=== PATIENT | female | born 1990 | race Caucasian/White ===

== ENCOUNTER 2022-01-14 08:42 | Outpatient (CLI) | payer MEDICAID, SELFPAY ==
--- OUTSIDE RECORDS SUMMARY | 2022-02-03 18:27 | XMS_ITS | Continuity of Care Document ---
:1990 Author Organization [facility] Address [address] [address] [place] [address] Phone Care Team Providers Name Role Phone Wild RODRIGUEZ, Blake Unavailable Unavailable Procedures Procedure Date Ugi Endo; W/bx 1/mx Advance Directives Directive Yes / No Effective Date File Name No Information Encounters Encounter Practice Location Reason(s) Diagnoses Date Provider Provide rs Description For Visit Copied on Encounter [facility] Pediatric No Wild RODRIGUEZ [facility] Information 0-200 Blake. [facility], [address] [place] [address], Street [place], [address], [id number] [place] [id number], tel:[phone]. [phone] tel:[phone] [facility] No Jun-0 No Referring [facility] Information 3-200 Information Pr ovider: Health [facility], Procedures [address] [place] [address], G, [address] [facility] [id number], [address]. tel:[phone] tel:[phone] Family History Family Member Type Diagnosis Age At Onset No Information Payers Payer name Insurance type Covered constitution party ID Authorization(s ) Formerly [facility] [id number] [place] Medical Assistance [id number] Social History Type Description Quantity Date Captured Comments Sex Female Smoking Status No Information Chief Complaint And Reason For Visit No Information Reason For Referral Reason For Referral No Information Plan Of Treatment Date Type Action Status No Information History Of Present Illness Encounter Date Complaint History Of Present I llness No Information Functional Status Date Functional Assessment No Information Instructions Date Instruction Additional Informati on No Information Assessments Type Assessment Date No Information Patient Care Teams Name Effective Dates (start - stop) Status M embers No Information
== END 2022-01-14 08:43 | disposition home or self-care (01) ==
PROVIDERS: PCP Family Medicine; Visit Provider Family Medicine
DX: R30.0 Dysuria (principal); N39.0 Urinary tract infection, site not specified
CPT/HCPCS: 87086

== ENCOUNTER 2022-10-26 11:02 | Outpatient (REF) | payer MEDICAID, SELFPAY ==
[2022-10-26 14:26] LABS: Cholesterol* 152 mg/dL (90-199); Glucose* 101 mg/dL (60-115); HDL Cholesterol* 58 mg/dL (>=50); LDL Cholesterol Calculated 79 mg/dL (<100); Triglycerides* 74 mg/dL (40-149)
== END 2022-10-26 11:03 | disposition home or self-care (01) ==
LOC: NPINS 11:02
PROVIDERS: PCP Family Medicine
DX: Z79.899 Other long term (current) drug therapy (principal); Z13.6 Encounter for screening for cardiovascular disorders; Z13.1 Encounter for screening for diabetes mellitus
CPT/HCPCS: 80061; 82947

== ENCOUNTER 2023-07-25 12:54 | Emergency (ER) | payer MEDICAID, SELFPAY ==
[2023-07-25 13:16] VITALS: BP 118/83; PULSE 90; RESP 18; TEMP 37; O2SAT 97; BMI 26.0
--- NOTE | 2023-07-25 13:35 | ED_ITS ---
HPI - General Adult General Date Seen: 07/25/23 Chief complaint: Cough Stated complaint: Flu symptoms Time Seen by Provider: 07/25/23 13:33 History of Present Illness HPI narrative: This is a 33-year-old female who has special needs. History is obtained from her mother and her nursing home staff member. She has a history of scoliosis, hypotonia, previous self-inflicted injuries, P5 partial monosomy syndrome. She has had occasional UTIs. No history of any va ginal bleeding since her hysterectomy. She is a resident of the [facility] in [place]. She has coughing, fever. Apparently 2 or 3 of her nursing home members also tested positive for influenza A. She is also having abdominal pain and vaginal spotting, but has a history of previous hysterectomy. They have noted symptoms that began last Wednesday with cough and fever. She has had intermittent fevers since then. Maximum temperature charted that I can see in her nursing home records was 11.8. Most temperature is of been more low grade, in the 90s on 100. She has had a cough but no respiratory distress. No definite sputum. No vomiting. She has not had any labored breathing or any cyanotic spells. She does get her oxygen saturations measured every day and they have been in the 90s. Also for the past 3 or 4 days she has been sometimes gesturing at her lower abdomen is if she is having discomfort. They have noted a little bit of dark brown discharge or liquid in her depends undergarments. Unclear if that dark brown could be her urine or possibly could be some vaginal discharge. Mother suspects it might be urine. She has longstanding history of constipation and as is not unusual for her she has not had any bowel movements for a 3 days. Mother knows the typical routine that they will use to resolve her constipation and is not concerned about that. Related Data Home Medications Medication Instructions Recorded Confirmed adapalene 0.1 % topical gel 1 topical .Bedtime 01/14/22 04/28/23 dextroamphetamine-amphetamine ER 5 5 PO DAILY 01/14/22 04/28/23 mg 24hr capsule,extend release risperidone 1 mg tablet 1 mg PO BID 01/14/22 07/25/23 trazodone 100 mg tablet 100 mg PO QDAY 01/14/22 07/25/23 fluoride (sodium) 1.1 % dental 1 applic dental QHS 04/27/22 07/25/23 cream (SF 5000 Plus) propranolol 10 mg tablet 10 mg PO BID 04/27/22 07/25/23 quetiapine 100 mg tablet (Seroquel) 250 mg PO BID 04/27/22 07/25/23 montelukast 10 mg tablet 10 mg PO QPM 07/25/23 07/25/23 Previous Rx's Medication Instructions Recorded polyethylene glycol 3350 17 17 g PO Q OTHER DAY #510 grams 04/28/23 gram/dose oral powder ondansetron 4 mg disintegrating 4 mg PO Q8H PRN nausea and 07/25/23 tablet vomiting #10 tabs oseltamivir 75 mg capsule (Tamiflu) 75 mg PO BID 5 days #10 caps 07/25/23 Allergies Allergy/AdvReac Type Severity Reaction Status Date / Time codeine Allergy Mild causes her Verified 07/25/23 13:22 to [facility] Medical History (Updated 07/25/23 @ 15:01 by Brennan Skelton MD) Gastric ulcer ?K25.9 - Gastric ulcer, unspecified as acute or chronic, without hemorrhage or perforation (ICD-10) Surgical History (Updated 04/27/22 @ 08:14 by Apolinar Newman MD) H/O tooth extraction ?K08.409 - Partial loss of teeth, unspecified cause, unspecified class (ICD- 10) H/O spinal fusion ?Z98.1 - Arthrodesis status (ICD-10) History of surgery on lower extremity ?Z98.890 - Other specified postprocedural states (ICD-10) History of Christiano fundoplication (07/15/10) ?Z98.890 - Other specified postprocedural states (ICD-10) History of hysterectomy ?Z90.710 - Acquired absence of both cervix and uterus (ICD-10) Social History (Updated 01/14/22 @ 15:06 by Apolinar Newman MD) Narrative: SOCIAL HISTORY: She lives in a nursing home in [place]. Her family lives in psychiatric hospital. She spends 1 day per week and every other weekend with her parents. HABITS: No tobacco, alcohol, recreational drug use. FAMILY HISTORY: Notable for breast cancer, heart disease and a bleeding disorder in maternal grandmother. Maternal grandfather with heart problems, diabetes and some type of cancer. Diabetes in both paternal grandmother and paternal grandfather. Paren Smoking Status: Never smoker Do you use any of these nicotine containing products: None How often do you have a drink containing alcohol: never How often do you have six or more drinks on one occasion: Never AUDIT-C Alcohol total score: 0 Non-prescribed substance use: denies use Exam Narrative: Exam Narrative: Constitutional: Appears well-developed and well-nourished. Alert. She is nonverbal but cooperative with exam. She does do a few simple signs to communicate with her mother. She follows simple commands. Of note she does have a little bit again given and retching went into the room. We suspect that this is related because she is very sensitive to smells and her mother thinks it might be my hand mechanic chief. She has not had other vomiting at home. She is wearing in all [employer] purple outfit. HENT: Head: Atraumatic. Nose: Nose normal. Mouth/Throat: Oral mucosa is clear and moist. no trismus. Visualized tongue and pharynx are normal. Eyes: Conjunctivae normal. EOM normal. Pupils equal, round, and reactive to light. No scleral icterus. Neck: Normal range of motion. Neck supple. No tracheal deviation present. No JVD Cardiovascular: Normal rate, regular rhythm. No gallop. No friction rub. No murmur heard. Symmetric radial artery pulses Pulmonary/Chest: Effort normal. No stridor. No respiratory distress. No wheezes. No rales. No rhonchi . No tenderness. Abdominal: Soft. Bowel sounds normal. No distension. No mass. No apparent tenderness or any signs of discomfort with deep abdominal palpation. No rebound. No guarding. No CVA tenderness. Musculoskeletal: RUE: Normal range of motion. No tenderness. No deformity LUE: Normal range of motion. No tenderness. No deformity RLE: Normal range of motion. No edema. No tenderness. No deformity LLE: Normal range of motion. No edema. No tenderness. No deformity Neurological: Alert . Nonverbal. At her neurologic baseline. Normal strength. CN II-VII intact. No sensory deficit. GCS eye subscore is 4. GCS verbal subscore is 5. GCS motor subscore is 6. Normal coordination Skin: Skin is warm and dry. No rash noted. No pallor. Normal capillary refill. Psychiatric: Normal mood. Normal affect. Interacts well with her mother and caregiver. Const: Vital Signs, click to edit/add: Vital Signs - 24 hr 07/25/23 13:16 Temperature 98.6 F Pulse Rate [Pulse Oximeter] 90 Respiratory Rate 18 Blood Pressure [Ri ght Upper Arm] 118/83 Pulse Oximetry 97 Oxygen Delivery Me thod Room Air Course Vital Signs Vital signs: Initial Vital Signs Temperature 98.6 F 07/25/23 13:16 Temperature Source Temporal Artery Scan 07/25/23 13:16 Pulse Rate 90 07/25/23 13:16 Respiratory Rate 18 07/25/23 13:16 Blood Pressure 118/83 07/25/23 13:16 Blood Pressure Mean 94 07/25/23 13:16 Blood Pressure Position Sitting 07/25/23 13:16 Pulse Oximetry 97 07/25/23 13:16 Oxygen Delivery Method Room Air 07/25/23 13:16 Vital Signs Temperature 98.6 F 07/25/23 13:16 Pulse Rate 90 07/25/23 13:16 Respiratory Rate 18 07/25/23 13:16 Blood Pressure 118/83 07/25/23 13:16 Pulse Oximetry 97 07/25/23 13:16 Oxygen Delivery Method Room Air 07/25/23 13:16 Temperature 98.6 F 07/25/23 13:16 Pulse Rate 90 07/25/23 13:16 Respiratory Rate 18 07/25/23 13:16 Blood Pressure 118/83 07/25/23 13:16 Pulse Oximetry 97 07/25/23 13:16 Oxygen Delivery Method Room Air 07/25/23 13:16 Medical Decision Making [facility] Narrative Medical decision making narrative: This patient presents for evaluation of cough, fever, and myalgias ongoing since Wednesday. This is consistent with an influenza like illness. Two or 3 of her nursing home roommates have also been positive for influenza this week. She is positive for influenza a by PCR. Negative for B, RSV, COVID. She is outside t he optimal 48 hour window for treatment with Tamiflu, however Patient meets criteria for treatment because the have high-risk features for severe illness. Fortunately this point vital signs and oxygen are stable. She is breathing easily. Does not currently require hospitalization. Will initiate treatment with Tamiflu. Discussed the risk of side effects. Zofran ODT prescribed in case she develops nausea. Mother also notes that she has had some brownish fluid in her depends diaper this week. Concern is for possible brown/bloody urine or possible vaginal bleeding. However she had a hysterectomy years ago is not had any vaginal bleeding since then. Urinalysis does show hematuria but no definite pyuria or bacteriuria or other clear evidence for UTI. At this point no indication for a ntibiotic therapy for cystitis but will send urine culture. They will need outpatient follow-up with primary care or Gynecology for further evaluation and recheck for hematuria. If no external cause for hematuria noted on clinical exam may need Urology referral in cystoscopy. Will treat with Tamiflu for influenza. They are at risk for pneumonia but no signs of this are detected on today's visit. Close followup of primary care physician is indicated and return to the ED for high fevers > 103 for more than 48 hours more, increasing productive cough, shortness of breath, or confusion. There is no signs of serious bacterial infection such as bacteremia, meningitis, UTI/pyelonephritis, strep pharyngitis, etc. Lab Data Labs: Lab Results 07/25/23 07/25/23 Range/Units 13:25 13:30 Urine Color Yellow (Yellow) Urine Appearance Clear (Clear) Urine pH 7.0 (5.0-8.5) Ur Specific [place] 1.010 (1.000-1.030) Urine Protein Negative (Negative) Urine Glucose (UA) Negative (Negative) Urine Ketones Negative (Negative) Urine Blood 1+ A (Negative) Urine Nitrite Negative (Negative) Urine Bilirubin Negative (Negative) Urine Urobilinogen 0.2 (0.2-1.0) Ur Leukocyte Esterase 1+ A (Negative) Urine RBC 2-5 A (0-2) Urine WBC 0-2 (0-5) Ur Squamous Epith Cells Few (None-Few) Urine Bacteria Few A (None) SARS-CoV-2 (PCR) Negative SARS-CoV-2 (Negative) Influenza Type A (PCR) POSITIVE PCR FLU A A (Negative) Influenza Type B (PCR) Negative PCR FLU B (Negative) RSV (PCR) Negative PCR RSV (Negative) Discharge Plan Discharge Clinical Impression: Influenza A, Hematuria Patient Disposition: Home, Self-Care Condition: Stable Instructions: Influenza (DC), Hematuria (ED) Additional Instructions: Please treat the influenza with Tamiflu. This is normally twice daily for 5 days. If she has worsening cough, trouble breathing, high fever, confusion, weakness, or abnormal behavior, please bring her back to the ER right away. Sometimes Tamiflu can cause nausea and vomiting. Use Zofran if needed it to treat nausea. She does have some blood in her urine sample but no clear sign of infection. We will send a urine culture today and call you if it grows bacteria. Please follow-up with her regular doctor or with her platform architect to have a repeat urinalysis, repeat exam and pelvic exam determine where the blood is coming from. Prescriptions: New oseltamivir [Tamiflu] 75 mg capsule 75 mg PO BID 5 Days Qty: 10 0RF ondansetron 4 mg tablet,disintegrating 4 mg PO Q8H PRN (Reason: nausea and vomiting) Qty: 10 0RF No Action dextroamphetamine-amphetamine 5 mg capsule,extended release 24hr 5 PO DAILY risperidone 1 mg tablet 1 mg PO BID trazodone 100 mg tablet 100 mg PO QDAY adapalene 0.1 % gel 1 topical .Bedtime propranolol 10 mg tablet 10 mg PO BID fluoride (sodium) [SF 5000 Plus] 1.1 % cream 1 applic dental QHS Patient Comments: BRUSH TEETH WITH A PEA SIZED AMOUNT FOR 60 SECONDS ONCE DAILY AT BEDTIME THEN SPIT - DO NOT RINSE - NOTHING BY MOUTH FOR 30 MINUTES AFTER US quetiapine [Seroquel] 100 mg tablet 250 mg PO BID polyethylene glycol 3350 17 gram/dose powder 17 g PO Q OTHER DAY Qty: 510 11RF montelukast 10 mg tablet 10 mg PO QPM Follow Up/Referrals: Apolinar Newman MD [Primary Care Provider] - Stand Alone Forms: Popdeem Info Instructions
[2023-07-25 13:56] LABS: Appearance Urine Clear (Clear); Bilirubin Urine Negative (Negative); Blood Urine 1+ (Negative); Color Urine Yellow (Yellow); Glucose Urine Negative (Negative); Ketones Urine Negative (Negative); Leukocyte Esterase Urine 1+ (Negative); Nitrite Urine Negative (Negative); Protein Urine Negative (Negative); Urobilinogen Urine 0.2 (0.2-1.0)
--- OUTSIDE RECORDS SUMMARY | 2023-07-25 14:10 | XMS_ITS | Clinical Summary ---
Author Name Unknown Organization [facility] Address [place], [place] [address] Care Team Providers Care Mail Agent Name Role Phone Apolinar Newman MD Primary Care Provider Allergies Active Allergy Reactions Criticality Noted Date Comments Codeine Other - Describe In Comment Field 09/02/2022 Causes patient to gag Unknown-Follow Up Needed (Include Details In Comments) 05/08/2006 environmental=Hay fever Medications Medication Sig Dispensed Refills Start Date End Date Status TRAZODONE 100 MG TAB take 1 tab by mouth @ bedtime 0 Active montelukast (SINGULAIR) 10 mg tablet Take 1 tablet by mouth at bedtime. 0 12/16/2016 Active sodium fluoride dental 1.1 % gel [place] pea-size amount on teeth QD at HS. NPO for 30 minutes after applying. 0 12/16/2016 Active Polyethylene Glycol 3350 powder TAKE 17GM BY MOUTH DIRECTED EVERY OTHER DAY 11 03/18/2018 Active dextroamphetamine-a mphetamine (ADDERALL XR) 5 mg Extended-Release capsule 0 03/08/2019 Active CLEARLAX 17 gram/dose powder 0 02/09/2019 Active QUEtiapine (SEROQUEL) 50 mg tablet TAKE ONE TABLET BY MOUTH TWICE A DAY, TAKE WITH 200MG TABLET FOR A TOTAL DAILY DOSE OF 250MG TWO TIMES A DAY 0 03/05/2021 Active risperiDONE (RISPERDAL) 1 mg tablet Take 1 mg by mouth 2 times daily. 0 03/10/2021 Active QUEtiapine (SEROQUEL) 100 mg tablet 2 Tablets (200 mg). 0 05/20/2021 Activ e amoxicillin-clavula chyna (AUGMENTIN) 400-57 mg/5 mL suspensionIndicatio ns:Cellulitis of skin Take 10 mls oral twice daily for 7 days 140 mL 0 05/20/2021 Active propranoloL (INDERAL) 10 mg tablet Take 10 mg by mouth two times daily. 0 03/12/2022 Active SF 5000 Plus 1.1 % crea Take by mouth at bedtime. 0 10/16/2021 Active LORazepam (ATIVAN) 2 mg tab TAKE 1 TABLET BY MOUTH 30 MINUTES PRIOR TO CHECK IN FOR DENTAL APPOINTMENT . NOTIFY DENTAL STAFF UPON ARRIVAL IF TAKEN 0 08/25/2022 Active trimethoprim-sulfam ethoxazole, 160-800 mg, (BACTRIM DS, SEPTRA DS) tab Take 1 Tablet by mouth two times daily. 0 01/14/2022 Active ibuprofen (ADVIL; MOTRIN) 600 mg tabletIndications:P ain, dental Take 1 Tablet (600 mg) by mouth every 6 hours if needed for Pain for up to 20 doses. Maximum of 3200 mg in 24 hours. 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/11/2006 Immunizations Name Administration Dates Next Due COVID-19 vaccine (Moderna 100mcg/0.5mL) PF, MDV 08/21/2020,07/24/2020 DTP 02/24/1995, 2,1990,1990,1990 Hepatitis A (Adult) 11/12/2010,04/08/2010 Hepatitis B, Unspecified 03/04/1994,04/09/1993,0 02/24/1993 Hib Conjugate, Unspecified 05/31/1991 Influenza A (H1N1), Ivan watt (Age >=3 Years) 05/07/2009 Influenza, IIV4 04/22/2020, 8,04/14/2017,2014 Influenza, IIV4 (=>6mos) MDV 04/09/2019,03/29/20 16 MMR 11/27/2002,05/31/1991 Polio Virus, Unspecified 02/24/1995,10/1991,1990,1989 Family History Medical History Relation Name Comments Good Health Father Good Health Mother Relation Name Status Comments Father Mother Social History Tobacco Use Types Packs/Day Years Used Date Smoking Tobacco: Never Smokeless Tobacco: Never Tobacco Cessation:Counseling Given: Yes Alcohol Use Standard Drinks/Week Comments No 0 (1 standard drink = 0.6 oz pur e alcohol) Social Connections Answer Date Recorded Frequency of Communication with Friends and Fami ly Not on file 06/28/2021 Financial Resource Strain Answer Date R ecorded Difficulty of Paying Living Expenses Not on file 06/28/2021 Difficulty of Paying Living Expenses Not on file 06/28/2021 Sex and Gender Information Value Date Recorded Sex Assigned at Not on file Gender Identity Not on file Sexual Orientation Not on file Obstetrics History Last Filed Vital Signs Vital Sign Reading Time Taken Comments Blood Pressure 116/74 09/14/2022 11:30 AM CDT Pulse 72 09/14/2022 11:30 AM CDT Temperature 36.5 ??C (97.7 ??F) 09/14/2022 10:25 AM C DT Respiratory Rate 16 09/14/2022 11:30 AM CDT Oxygen Saturation 92% 09/14/2022 11:30 AM CDT Inhaled Oxygen Concentration - - Weight 67.4 kg (148 lb 9.8 oz) 09/14/2022 7:45 A M CDT Height 155 cm (5' 1.02) 09/14/2022 7:45 AM CDT Body Mass Index 28.06 09/14/2022 7:45 AM CDT Plan of Treatment Health Maintenance Due Date Last Done Comments Tdap 2001 Depression screening for age 12+ 2002 HIV for age 15-65 2005 Hepatitis C screening for age 18-79 02/26/2008 Tetanus booster 2010 Pap test for age 21-65 2011 BMI (ht and wt on same day) for age 18+ 12/16/2017 12/16/2016 Influenza for age 9-49 02/26/2023 0, 04/09/2019, 04/19/2018, Additional history exists COVID-19 vaccine series Completed 03/28/20, 03/15/2022, 04/23/2021, Additional history exists Pneumococcal series for age 6-64 Aged Out No longer eligible based on patient's age to complete this topic Medical Devices Implanted Type Area Pharmacist Manager Device Identifier Shelf Expiration Date Model / Serial / Lot [id number] hips Canclls 1.0-9.5mm 30cc Aseptic Freeze Dried Strl [[id number]] Implanted:Qty: 1 on 05/11/2006 at [facility] Explanted:at [facility] (Quantity not on file) Bone Implants Spine Allosource 07/04/2010 [id number] / [id number] / [id number] hips Canclls 1.0-9.5mm 30cc Aseptic Freeze Dried Strl [[id number]] Implanted:Qty: 1 on 05/11/2006 at [facility] Explanted:at [facility] (Quantity not on file) Bone Implants Spine Allosource 03/10/2011 [id number] / [id number] / Screw Legacy 6.5x40 Titnm M/A [id number] - [id number] Implanted:Qty: 1 on 05/11/2006 at [facility] Spine SOFAMOR DANEK [id number]# / / Cnnctr Crosslink 5.5mmx1.00in - [id number] Implanted:Qty: 1 on 05/11/2006 at [facility] Spine SOF[employer]OR DANEK [id number]# / / Screw Legacy 6.5x50 Titnm M/A [id number] - [id number] Implanted:Qty: 4 on 05/11/2006 at [facility] Spine SOF[employer]OR DANEK [id number]# / / Screw Set Break-Off Hex Titnm - [id number] Implanted:Qty: 19 on 05/11/2006 at [facility] Spine SOF[employer]OR DANEK [id number]# / / Hook Wide Lg Legacy - [id number] Implanted:Qty: 6 on 05/11/2006 at [facility] Spine SOF[employer]OR [employer]ANEK [id number]# / / Hook Pedicale Sm Std - [id number] Implanted:Qty: 5 on 05/11/2006 at [facility] Spine SOF[employer]OR [employer]ANEK [id number]# / / Louis Youngblood Md Std - [id number] Implanted:Qty: 1 on 05/11/2006 at [facility] Spine SOF[employer]OR DANEK [id number]# / / Louis Lezama Md Rmpd Thorac - [id number] Implanted:Qty: 2 on 05/11/2006 at [facility] Spine SOF[employer]OR DANEK [id number]# / / Cuco 5.5mm Nicol 500mm Long Cp 4 [id number] - [id number] Implanted:Qty: 2 on 05/11/2006 at [facility] Spine SOF[employer]OR DANEK [id number]# / / Advance Directives Latest Code Status on File Code Status Date Activated Date Inactivated Comments Full Code 05/11/2006 1:04 PM 05/16/2006 6:07 PM Code Status History Code Status Date Activated Date Inactivated Comments Full Code 05/11/2006 5:30 AM 05/11/2006 1:04 PM Care Teams Mail Agent Relationship Specialty Start Date End Date Apolinar Newman MD [address] [place] [address] PCP - General Family Practice 08/25/22
--- OUTSIDE RECORDS SUMMARY | 2023-07-25 14:11 | XMS_ITS | Continuity of Care Document ---
Author Name Unknown Organization [facility] Address [address] [place] [address] Phone Care Team Providers Care Vp Integration Name Role Phone Quan Uriostegui MD Unavailable Unavailable Allergies, Adverse Reactions, Alerts Substance Reaction Status Criticality No Known Allergies Active No Inform ation Medications Medication Instructions Dosage Effective Dates (start - stop) Status Comments SEROQUEL (unknown strength) Not Available - Active ADDERALL (unknown strength) Not Available - Active RISPERDAL (unknown strength) Not Available - Active TRAZODONE HCL (unknown strength) Not Available - Active MIRALAX (unknown strength) Not Available - Active CLONIDINE HCL (unknown strength) Not Available - Active MONTELUKAST SODIUM (unknown strength) Not Available - Active Procedures Procedure Date X Ray Exam Entire Spine 2/3 Office/Outpatient Visit,[facility] 2020 Office/Outpatient Visit,[facility], [facility] X Ray Exam Entire Spine 2/3 19 Office/Outpatient Visit,[facility] 2017 Office/outpatient visit,[facility], [facility] [place] 2007 X-ray exam of total spine Office/outpatient visit,[facility], [facility] 2006 X-ray exam of total spine Postop followup visit X-ray exam of total spine Office/outpatient visit,[facility], [facility] 2005 X-ray exam of total spine Advance Directives Directive Yes / No Effective Date File Name No Information Encounters Encounter Description Practice Location Reason(s) For Visit Diagnoses Date Provider Providers Copied on Encounter [facility], [address], [place], [place], [id number], [place] tel:[phone] [facility] [place] No Information 1 Uriostegui Quan. [facility], [address] [place] [address], [address], [place], [place], [id number], [place]. tel:[phone] Office/Outpa tient Visit,Est, Low [facility], [address] [place] [address], [id number], [place] tel:[phone] [facility] [place] Encounter for follow-up examination after completed treatment for conditions other than malignant neoplasmEncou nter for follow-up examination after completed treatment for conditions other than malignant neoplasm 1 Uriostegui Quan. [facility], [address] [place] [address], [address], [id number], [place]. tel:[phone] Referring Provider: Apolinar Grimaldo, [facility] [address] [place], [address]. tel:[phone] Office/Outpa tient Visit,Est, Mod [facility], [address], [place], [place], [id number], [place] tel:[phone] [facility] [place] Other idiopathic scoliosis, thoracic regionEncount er for follow-up examination after completed treatment for conditions other than malignant neoplasm 0 9 Uriostegui Quan. [facility], [address] [place] [address], [address], [place], [place], [id number], [place]. tel:[phone] Referring Provider: Apolinar Grimaldo, [facility] [address] [place], [address]. tel:[phone] Office/Outpa tient Visit,New, Low [facility], [address] [place] [address], [id number], [place] tel:[phone] [facility] Other forms of scoliosis, thoracic region Jan- 9-201 8 Panvica Nadeem. [facility], [address] [place] [address], [address], [place], [place], [id number], [place]. tel:[phone] Referring Provider: Nadeem Lagunas, [facility] [address] [place] [address], [address], [place], [address]. tel:[phone] Office/outpa tient visit,est, mod Z [facility], [address] [facility] [address], [place], [address], [place] tel:[phone] [facility] [place] No Information 0 8 No Information Referring Provider: Tam Lagunas, [address], [address]. tel:[phone] Office/outpa tient visit,est, mod Z [facility], [address], [place], [address], [place] tel:[phone] [facility] [place] No Information 7 No Information Z [facility], [address] [place], [place] [address] [address], [place], [address], [place] tel:[phone] [facility] [place] No Information 7 No Information Office/outpa tient visit,est, mod Z [facility], [address] [place], [place] [address]ite [facility], [place], [address], [place] tel:[phone] [email or web address] [place] No Information 6 No Information Family History Family Member Type Diagnosis Age At Onset No Information Payers Payer name Insurance type Covered green party ID Naldo meyers(s) Medical Assistance [facility] [id number] Social History Type Description Quantity Date Captured Comments Sex Female Smoking Status No Information Chief Complaint And Reason For Visit No Information Reason For Referral Reason For Referral No Information History Of Present Illness Encounter Date Complaint History Of Prese nt Illness No Information Functional Status Date Functional Assessmen t No Information Instructions Date Instruction Additional Infor mation No Information Assessments Type Assessment Date No Information Patient Care Teams Name Effective Dates (start - stop) Status Members No Information
[2023-07-25 14:14] LABS: PCR FLU A POSITIVE PCR FLU A (Negative); PCR FLU B Negative PCR FLU B (Negative); PCR RSV Negative PCR RSV (Negative); SARS PCR* Negative SARS-CoV-2 (Negative)
[2023-07-25 14:30] LABS: Bacteria Urine Few; Squamous Epithelial Cell Urine Few (None-Few); WBC Urine 0-2 (0-5)
== END 2023-07-25 15:17 | disposition home or self-care (01) ==
PROVIDERS: Emergency Provider Emergency Medicine; PCP Family Medicine
DX: R31.9 Hematuria, unspecified (principal)
CPT/HCPCS: 81001; 87086; 87631; 99283; 99284

== ENCOUNTER 2023-08-03 17:50 | Outpatient (CLI) | payer MEDICAID, SELFPAY ==
--- OUTSIDE RECORDS SUMMARY | 2023-08-03 17:53 | XMS_ITS | Clinical Summary ---
Author Name Unknown Organization [employer] [facility] Address [place], [place] [address] Care Team Providers Care Safety Lamp Keeper Name Role Phone Apolinar Newman MD Primary Care Provider [phone] Allergies Active Allergy Reactions Criticality Noted Date [...] Active sodium fluoride dental 1.1 % gel Imler pea-size amount on teeth QD at HS. [...] this topic Medical Devices Implanted Type Area Physician Liaison Device Identifier Shelf Expiration Date Model / Serial / Lot [id number] hips Canclls 1.0-9.5mm 30cc Aseptic Freeze Dried Strl [[id number]] Implanted:Qty: 1 on 05/11/2006 at [facility] Explanted:at [facility] (Quantity not on file) Bone Implants Spine [employer] 07/04/2010 [id number]# / [id number] / [id number] hips Canclls 1.0-9.5mm 30cc Aseptic Freeze Dried Strl [[id number]] Implanted:Qty: 1 on 05/11/2006 at [facility] Explanted:at [facility] (Quantity not on file) Bone Implants Spine [employer] 03/10/2011 [id number]# / [id number] / Screw Legacy 6.5x40 Titnm M/A [id number] - [id number] Implanted:Qty: 1 on 05/11/2006 at [facility] Spine SOFAMOR DANEK [id number]# / / Cnnctr Crosslink 5.5mmx1.00in - [id number] Implanted:Qty: 1 on 05/11/2006 at [facility] Spine [employer]ANEK 811-304# / / Screw Legacy 6.5x50 Titnm M/A [id number] - [id number] Implanted:Qty: 4 on 05/11/2006 at [facility] Spine SOF[employer]ANEK [id number]# / / Screw Set Break-Off Hex Titnm - [id number] Implanted:Qty: 19 on 05/11/2006 at [facility] Spine [employer]K [id number]# / / Hook Wide Lg Legacy - [id number] Implanted:Qty: 6 on 05/11/2006 at [facility] Spine SOF[employer]OR [employer]ANEK [id number]# / / Hook Pedicale Sm Std - [id number] Implanted:Qty: 5 on 05/11/2006 at [facility] Spine SOF[employer]OR [employer]ANEK [id number]# / / Louis Youngblood Md Std - [id number] Implanted:Qty: 1 on 05/11/2006 at [facility] Spine SOF[employer]OR DANEK [id number]# / / Louis Lezama Md Rmpd Thorac - [id number] Implanted:Qty: 2 on 05/11/2006 at [facility] Spine SOF[employer]OR [employer]ANEK [id number]# / / Cuco 5.5mm Nicol 500mm Long Cp 4 [id number] - [id number] Implanted:Qty: 2 on 05/11/2006 at [facility] Spine SOF[employer]OR [employer]ANEK 869-013# / / Advance Directives Latest Code Status on File Code Status Date Activated Date Inactivated Comments Full Code 05/11/2006 1:04 PM 05/16/2006 6:07 PM Code Status History Code Status Date Activated Date Inactivated Comments Full Code 05/11/2006 5:30 AM 05/11/2006 1:04 PM Care Teams Safety Lamp Keeper Relationship Specialty Start Date End Date Apolinar Newman MD [address] [place] [address] PCP - General Family Practice 08/25/22
[2023-08-07 18:34] LABS: HSV 1 Subtype by PCR Not Detected; HSV 2 Subtype by PCR Not Detected; Herpes Simplex Subtype Source Vesicle
== END 2023-08-03 17:51 | disposition home or self-care (01) ==
LOC: NFLDREF 17:50
PROVIDERS: PCP Family Medicine; Visit Provider Registered Nurse
DX: N90.89 Other specified noninflammatory disorders of vulva and perineum (principal)
CPT/HCPCS: 87529

== ENCOUNTER 2023-10-15 10:42 | Outpatient (CLI) | payer MEDICAID, SELFPAY ==
--- OUTSIDE RECORDS SUMMARY | 2023-10-15 10:47 | XMS_ITS | Clinical Summary ---
Author Name Unknown Organization [facility] Address [place], [place] [address] Care Team Providers Care Plush Weaver Name Role Phone Apolinar Newman MD Primary Care Provider [phone] Allergies Active Allergy Reactions Criticality Noted Date [...] Active sodium fluoride dental 1.1 % gel [place] pea-size amount on teeth QD at HS. NPO for 30 minutes after applying. 0 12/16/2016 Active Polyethylene Glycol 3350 powder TAKE 17GM BY MOUTH DIRECTED EVERY OTHER DAY 03/18/2018 Active dextroamphetamine-a mphetamine (ADDERALL XR) 5 mg Extended-Release capsule 03/08/2019 Active CLEARLAX 17 gram/dose powder 02/09/2019 Active QUEtiapine (SEROQUEL) 50 mg tablet TAKE ONE TABLET BY MOUTH TWICE A DAY, TAKE WITH 200MG TABLET FOR A TOTAL DAILY DOSE OF 250MG TWO TIMES A DAY 03/05/2021 Active risperiDONE (RISPERDAL) 1 mg tablet Take 1 mg by mouth 2 times daily. 03/10/2021 Active QUEtiapine (SEROQUEL) 100 mg tablet 2 Tablets (200 mg). 0 05/20/2021 Activ e amoxicillin-clavula chyna (AUGMENTIN) 400-57 mg/5 mL suspensionIndicatio ns:Cellulitis of skin Take 10 mls oral twice daily for 7 days 140 mL 05/20/2021 Active propranoloL (INDERAL) 10 mg tablet Take 10 mg by mouth two times daily. 03/12/2022 Active SF 5000 Plus 1.1 % crea Take by mouth at bedtime. 10/16/2021 Active LORazepam (ATIVAN) 2 mg tab TAKE 1 TABLET BY MOUTH 30 MINUTES PRIOR TO CHECK IN FOR DENTAL APPOINTMENT . NOTIFY DENTAL STAFF UPON ARRIVAL IF TAKEN 08/25/2022 Active trimethoprim-sulfam ethoxazole, 160-800 mg, (BACTRIM DS, SEPTRA DS) tab Take 1 Tablet by mouth two times daily. 01/14/2022 Active ibuprofen (ADVIL; MOTRIN) 600 mg tabletIndications:P ain, dental Take 1 Tablet (600 mg) by mouth every 6 hours if needed for Pain for up to 20 doses. Maximum of 3200 mg in 24 hours. 20 Tablet 09/14/2022 Active Active Problems Problem Noted Date [...] 18+ 12/16/2017 12/16/2016 Influenza for age 9-49 02/27/2024 0, 04/09/2019, 04/19/2018, Additional history exists COVID-19 vaccine series Completed 03/28/20 23, 03/15/2022, 04/23/2021, Additional history exists Pneumococcal series for age 6-64 Aged Out No longer eligible based on patient's age to complete this topic Medical Devices Implanted Type Area Food Processor Device Identifier Shelf Expiration Date Model / Serial / Lot [id number] hips Canclls 1.0-9.5mm 30cc Aseptic Freeze Dried Strl [[id number]] Implanted:Qty: 1 on 05/11/2006 at [facility] Explanted:at [facility] (Quantity not on file) Bone Implants [facility] 07/04/2010 [id number]# / [id number] / [id number] hips Canclls 1.0-9.5mm 30cc Aseptic Freeze Dried Strl [[id number]] Implanted:Qty: 1 on 05/11/2006 at [facility] Explanted:at [facility] (Quantity not on file) Bone Implants [facility] 03/10/2011 [id number]# / [id number] / Screw Legacy 6.5x40 Titnm M/A [id number] - [id number] Implanted:Qty: 1 on 05/11/2006 at [facility] Spine SOFAMOR DANEK [id number]# / / Cnnctr Crosslink 5.5mmx1.00in - [id number] Implanted:Qty: 1 on 05/11/2006 at [facility] Spine SOFAMOR DANEK 811-304# / / Screw Legacy 6.5x50 Titnm M/A [id number] - [id number] Implanted:Qty: 4 on 05/11/2006 at [facility] Spine SOFAMOR DANEK [id number]# / / Screw Set Break-Off Hex Titnm - [id number] Implanted:Qty: 19 on 05/11/2006 at [facility] Spine SOFAMOR DANEK [id number]# / / Louis Molina Lg Legacy - [id number] Implanted:Qty: 6 on 05/11/2006 at [facility] Spine SOFAMOR DANEK [id number]# / / Louis Trotter Std - [id number] Implanted:Qty: 5 on 05/11/2006 at [facility] Spine SOFAMOR DANEK [id number]# / / Louis Youngblood Md Std - [id number] Implanted:Qty: 1 on 05/11/2006 at [facility] Spine SOFAMOR DANEK [id number]# / / Louis Lezama Md Rmpd Thorac - [id number] Implanted:Qty: 2 on 05/11/2006 at [facility] Spine SOFAMOR DANEK [id number]# / / Cuco 5.5mm Nicol 500mm Long Cp 4 [id number] - [id number] Implanted:Qty: 2 on 05/11/2006 at [facility] Spine SOFAMOR DANEK 869-013# / / Advance Directives * Full Code (Latest Code Status on File) Date Activated Date Inactivated Comments 05/11/2006 1:04 PM 05/16/2006 6:07 PM * Full Code Date Activated Date Inactivated Comments 05/11/2006 5:30 AM 05/11/2006 1:04 PM Care Teams Plush Weaver Relationship Specialty Start Date End Date Apolinar Newman MD [address] [place] [address] PCP - General Family Practice 08/25/22
--- OUTSIDE RECORDS SUMMARY | 2023-10-15 10:47 | XMS_ITS | Continuity of Care Document ---
Author Name Unknown Organization [facility] Address [address] [place] [address] Phone Care Team Providers Care Mobile Security Specialist Name Role Phone Quan Uriostegui MD Unavailable [...] X Ray Exam Entire Spine 2/3 Office/Outpatient Visit,[facility] 2020 Office/Outpatient Visit,[facility], [facility] 2018 X Ray Exam Entire Spine 2/3 19 Office/Outpatient Visit,[facility] 2017 Office/outpatient visit,[facility] 2007 X-ray exam of total spine Office/outpatient visit,[facility], [facility] 2006 X-ray exam of total spine Postop followup visit X-ray exam of total spine Office/outpatient visit,[facility], [facility] 2005 X-ray exam of total spine Advance Directives Directive Yes / No Effective Date File Name No Information Encounters Encounter Description Practice Location Reason(s) For Visit Diagnoses Date Provider Providers Copied on Encounter [facility], [address], [place], [place], [id number], [place] tel:[phone] [facility] [place] No Information 1 Uriostegui Quan. [facility], [address] [place] [address], [address], [place], [place], [id number], [place]. tel:[phone] Office/Outpa tient Visit,Est, Low [facility], [address] [place] [address], [id number], [place] tel:[phone] [facility] [place] Encounter for follow-up examination after completed treatment for conditions other than malignant neoplasmEncou nter for follow-up examination after completed treatment for conditions other than malignant neoplasm 1 Uriostegui Quan. [facility], [address] [place] [address], [address], [id number], [place]. tel:[phone] Referring Provider: Apolinar Grimaldo, [facility] [address] [place], [address]. tel:[phone] Office/Outpa tient Visit,Est, Mod [facility], [address], [place], [place], [id number], [place] tel:[phone] [facility] [place] Other idiopathic scoliosis, thoracic regionEncount er for follow-up examination after completed treatment for conditions other than malignant neoplasm 0 9 Uriostegui Quan. [facility], [address] [place] [address], [address], [place], [place], [id number], [place]. tel:[phone] Referring Provider: Apolinar Grimaldo, [facility] [address] [place], [address]. tel:[phone] Office/Outpa tient Visit,New, Low [facility], [address] [place] [address], [id number], [place] tel:[phone] [facility] Other forms of scoliosis, thoracic region Jan- 9-201 8 Panvica Nadeem. [facility], [address] [place] [address], [address], [place], [place], [id number], [place]. tel:[phone] Referring Provider: Nadeem Lagunas, [facility] [address] [place] [address], [address], [place], [address]. tel:[phone] Office/outpa tient visit,est, mod Z [facility], [address], [place], [address], [place] tel:[phone] [facility] [place] No Information 0 8 No Information Referring Provider: Tam Lagunas, [address], [address]. tel:[phone] Office/outpa tient visit,est, mod Z [facility], [address], [place], [address], [place] tel:[phone] [facility] [place] No Information 7 No Information Z [facility], [address] [place], [place] [address], [place], [address], [place] tel:[phone] [facility] [place] No Information 7 No Information Office/outpa tient visit,est, mod Z [facility], [address] [place], [place] [address]ite [facility], [place], [address], [place] tel:[phone] [facility] [place] No Information 6 No Information Family History Family Member Type Diagnosis Age At Onset No Information Payers Payer name Insurance type Covered libertarian ID Naldo meyers(s) Medical Assistance [facility] [id number] Social History Type Description Quantity Date Captured [...]
== END 2023-10-15 10:43 | disposition home or self-care (01) ==
LOC: NFLDREF 10:45
PROVIDERS: PCP Family Medicine; Visit Provider Family Medicine
DX: R82.90 Unspecified abnormal findings in urine (principal)
CPT/HCPCS: 87086

== ENCOUNTER 2023-12-10 11:45 | Outpatient (REF) | payer MEDICAID, SELFPAY ==
[2023-12-10 13:49] LABS: Cholesterol* 155 mg/dL (90-199); Glucose* 110 mg/dL (60-115); HDL Cholesterol* 56 mg/dL (>=50); LDL Cholesterol Calculated 87 mg/dL (<100); Triglycerides* 62 mg/dL (40-149)
== END 2023-12-10 11:46 | disposition home or self-care (01) ==
LOC: NPINS 11:45
PROVIDERS: PCP Family Medicine; Visit Provider Nurse Practitioner Psychiatric/Mental Health
DX: Z79.899 Other long term (current) drug therapy (principal)
CPT/HCPCS: 80061; 82947

== ENCOUNTER 2024-11-01 08:07 | Outpatient (CLI) | payer MEDICAID, SELFPAY ==
[2024-11-01 11:27] LABS: Cholesterol* 140 mg/dL (90-199); Triglycerides* 56 mg/dL (40-149)
[2024-11-01 11:28] LABS: Glucose* 96 mg/dL (60-115); HDL Cholesterol* 52 mg/dL (>=50); LDL Cholesterol Calculated 77 mg/dL (<100)
== END 2024-11-01 08:08 | disposition home or self-care (01) ==
LOC: NPINS 08:07
PROVIDERS: PCP Family Medicine; Visit Provider Nurse Practitioner Psychiatric/Mental Health
DX: Z13.6 Encounter for screening for cardiovascular disorders (principal); Z13.1 Encounter for screening for diabetes mellitus; Z79.899 Other long term (current) drug therapy
CPT/HCPCS: 80061; 82947

== ENCOUNTER 2025-02-05 16:43 | Emergency (ER) | payer MEDICAID, SELFPAY ==
[2025-02-05 17:01] VITALS: BP 105/72; PULSE 89; RESP 20; TEMP 36.4; O2SAT 96; BMI 26.9
--- NOTE | 2025-02-05 19:13 | CRLHL7_ITS ---
For Patients: As a result of the Century Cures Act, medical imaging exams and procedure reports are released immediately into your electronic medical record. You may view this report before your referring provider. If you have questions, please contact your health care provider. INDICATION: Aspiration. COMPARISON: None available. TECHNIQUE: Chest series. FINDINGS: Patient is rotated on the frontal view. Grossly, lungs are clear. No large pleural effusions. No pneumothorax. No consolidation. Limited evaluation of the cardiomediastinal silhouette secondary to scoliotic curvature. Marked elevation of left hemidiaphragm. Multilevel loops of gas-filled colon within the left upper quadrant. Extensive postop changes in the thoracic and lumbar spine. There may be fractured fusion rods inferiorly. Dictated by Shelton Wiggins MD @ 02/05/2025 8:08:30 PM (Electronically Signed)
--- NOTE | 2025-02-05 19:16 | ED.GENADULT ---
HPI - General Adult General Date Seen: 02/05/25 Chief complaint: Unspecified Complaint, Adult Stated complaint: Heimlich performed today, choked on apple Time Seen by Provider: 02/05/25 19:16 History of Present Illness HPI narrative: 34 yo F with a history of 5p partial monos OB syndrome, hypotonia, scoliosis with Turner rods, chronic constipation, presenting to the ER today with her parents for evaluation after she had a choking spell and received the Heimlich maneuver. She was at her day program today when she was eating an apple and choked on it. She received the Heimlich maneuver from her staff and apparently and swallow the apple bit. She has been breathing normally since the episode. No coughing. No respiratory distress. Staff notified the patient's parents and encouraged them to bring her to the ER to be evaluated. Her parents tried to take patient to the urgent care but she refused to allow them to evaluate her (was very anxious and fighting against evaluation, including vital signs) so parents brought her here. Parents note that she has been breathing easily since the episode. No coughing. No fever Related Data Home Medications ?Medication ?Instructions ?Recorded ?Confirmed adapalene 0.1 % topical gel 1 topical .Bedtime 01/14/22 06/05/24 dextroamphetamine-amphetamine ER 5 5 PO DAILY 01/14/22 06/05/24 mg 24hr capsule,extend release risperidone 1 mg tablet 1 mg PO BID 01/14/22 06/05/24 trazodone 100 mg tablet 100 mg PO QDAY 01/14/22 06/05/24 fluoride (sodium) 1.1 % dental 1 applic dental QHS 04/27/22 06/05/24 cream (SF 5000 Plus) propranolol 10 mg tablet 10 mg PO BID 04/27/22 06/05/24 quetiapine 100 mg tablet (Seroquel) 250 mg PO BID 04/27/22 06/05/24 Previous Rx's ?Medication ?Instructions ?Recorded ondansetron 4 mg disintegrating 4 mg PO Q8H PRN nausea and 05/01/24 tablet vomiting #10 tabs polyethylene glycol 3350 17 17 g PO Q OTHER DAY #510 grams 06/09/24 gram/dose oral powder montelukast 10 mg tablet 10 mg PO QPM #90 tabs 09/14/24 Allergies Allergy/AdvReac Type Severity Reaction Status Date / Time codeine Allergy Mild causes her Verified 06/05/24 08:15 to gag [facility] Medical History (Updated 02/05/25 @ 20:16 by Brennan Skelton MD) Gastric ulcer ?K25.9 - Gastric ulcer, unspecified as acute or chronic, without hemorrhage or perforation (ICD-10) Surgical History (Updated 05/01/24 @ 08:41 by Apolinar Newman MD) H/O tooth extraction ?K08.409 - Partial loss of teeth, unspecified cause, unspecified class (ICD-10) H/O spinal fusion ?Z98.1 - Arthrodesis status (ICD-10) History of surgery on lower extremity ?Z98.890 - Other specified postprocedural states (ICD-10) History of Christiano fundoplication (07/15/10) ?Z98.890 - Other specified postprocedural states (ICD-10) History of hysterectomy ?Z90.710 - Acquired absence of both cervix and uterus (ICD-10) Family History Grandmother Stroke Breast cancer Mother High blood pressure High cholesterol Brother Diabetes Other Kidney disease Social History (Updated 05/01/24 @ 09:21 by Belen Hastings~[facility], [facility]) Narrative: SOCIAL HISTORY: She lives in a longterm in [place]. Her [facility]. She spends 1 day per week and every other weekend with her parents. HABITS: No tobacco, alcohol, recreational drug use. FAMILY HISTORY: Notable for breast cancer, heart disease and a bleeding disorder in maternal grandmother. Maternal grandfather with heart problems, diabetes and some type of cancer. Diabetes in both paternal grandmother and paternal grandfather. What is your current living situation?: I presently have a place to live Problems where you live: declined to answer In the past 12 months, utilities in danger of being shut off: no In past 12 months, lack of transportation kept you from medical appts, meetings, work, or getting things needed for daily living: no In the past 12 mos, have been you worried that your food would run out before you had money to buy more?: never true In the past 12 mos, the food you bought just didn't last and you didn't have money to buy more?: never true Smoking Status: Never smoker Do you use any of these nicotine containing products: None How often do you have a drink containing alcohol: never How often do you have six or more drinks on one occasion: Never AUDIT-C Alcohol total score: 0 Non-prescribed substance use: denies use How often does anyone, including family, friends and others, physically hurt you: never How often does anyone, including family, friends and others, insult or talk down to you: never How often does anyone, including family, friends and others, threaten you with harm: never How often does anyone, including family, friends and others, scream or curse at you: never Exam Narrative: Exam Narrative: Constitutional: Appears well-developed and well-nourished. Alert. Cooperative with exam. Largely nonverbal but is able to communicate by gestures.. Non toxic. She kisses my hand during examination. HENT: Head: Atraumatic. Nose: Nose normal. Mouth/Throat: Oral mucosa is clear and moist. no trismus. Pharynx normal. Tonsils symmetric. No tonsillar enlargement, erythema, or exudate. Eyes: Conjunctivae normal. EOM normal. Pupils equal, round, and reactive to light. No scleral icterus. Neck: Normal range of motion. Neck supple. No tracheal deviation present. Cardiovascular: Normal rate, regular rhythm. No gallop. No friction rub. No murmur heard. Symmetric radial artery pulses Pulmonary/Chest: Effort normal. No stridor. No respiratory distress. No wheezes. No rales. No rhonchi . No tenderness. Abdominal: Soft. Bowel sounds normal. No distension. No mass. No tenderness. No rebound. No guarding. Musculoskeletal: Scoliosis with incisions from previous back surgery. RUE: Normal range of motion. No tenderness. No deformity LUE: Normal range of motion. No tenderness. No deformity RLE: Normal range of motion. No edema. No tenderness. No deformity LLE: Normal range of motion. No edema. No tenderness. No deformity Neurological: Alert and oriented to person, place, and time. Normal strength. CN II-VII intact. No sensory deficit. GCS eye subscore is 4. GCS verbal subscore is 5. GCS motor subscore is 6. Normal coordination Skin: Skin is warm and dry. No rash noted. No pallor. Normal capillary refill. Psychiatric: Normal mood. Normal affect. Const: Vital Signs, click to edit/add: Vital Signs - 24 hr 02/05/25 17:01 02/05/25 19:47 Temperature 97.6 F Pulse Rate 82 Pulse Rate [Pulse Oximeter] 89 Respiratory Rate 20 14 Blood Pressure 112/83 Blood Pressure [Ri ght Upper Arm] 105/72 Pulse Oximetry 96 96 Oxygen Delivery Me thod Room Air Room Air Course Vital Signs Vital signs: Initial Vital Signs Temperature 97.6 F 02/05/25 17:01 Temperature Source Temporal Artery Scan 02/05/25 17:01 Pulse Rate 89 02/05/25 17:01 Respiratory Rate 20 02/05/25 17:01 Blood Pressure 105/72 02/05/25 17:01 Blood Pressure Mean 83 02/05/25 17:01 Blood Pressure Position Sitting 02/05/25 17:01 Pulse Oximetry 96 02/05/25 17:01 Oxygen Delivery Method Room Air 02/05/25 17:01 Vital Signs Temperature 97.6 F 02/05/25 17:01 Pulse Rate 89 02/05/25 17:01 Respiratory Rate 20 02/05/25 17:01 Blood Pressure 105/72 02/05/25 17:01 Pulse Oximetry 96 02/05/25 17:01 Oxygen Delivery Method Room Air 02/05/25 17:01 Temperature 97.6 F 02/05/25 17:01 Pulse Rate 82 02/05/25 19:47 Respiratory Rate 14 02/05/25 19:47 Blood Pressure 112/83 02/05/25 19:47 Pulse Oximetry 96 02/05/25 19:47 Oxygen Delivery Method Room Air 02/05/25 19:47 Medical Decision Making MDM Narrative Medical decision making narrative: 34-year-old female with developmental delay brought to the ER today by her parents after she had a choking event at her day program today and received the Heimlich maneuver from her day program staff. She has been breathing easily and has not had any cough or trouble breathing since the episode. Concern here would be for potential aspiration. Lungs are clear, oxygen level is normal, and chest x-ray shows no obvious new acute infiltrate. Would hold off on any antibiotics at this point without any evidence for aspiration or aspiration pneumonia. Clinically she does not have any chest wall tenderness to suggest rib fractures. There are no visible fractures on the chest x-ray. Discussed plan of care with the patient and her parents. They are eager to be discharged home. Risk of aspiration pneumonia on precautions for return to the ER reviewed. Questions answered. Imaging Data Chest x-ray: Attestation: I have reviewed the pertinent imaging results. My impression: Large gas-filled bowels below the left hemidiaphragm pushed the heart to the right. No definite acute infiltrate. I do not see any acute infiltrates or pleural effusions on the lateral view. Radiologist's impression: FINDINGS: Patient is rotated on the frontal view. Grossly, lungs are clear. No large pleural effusions. No pneumothorax. No consolidation. Limited evaluation of the cardiomediastinal silhouette secondary to scoliotic curvature. Marked elevation of left hemidiaphragm. Multilevel loops of gas-filled colon within the left upper quadrant. Extensive postop changes in the thoracic and lumbar spine. There may be fractured fusion rods inferiorly. Discharge Plan Discharge Clinical Impression: Choking episode Patient Disposition: Home w/ Parent or Adult Instructions: Aspiration Pneumonia (DC) Additional Instructions: As we discussed, right now her lungs are clear and her chest x-ray looks clear. We do not see any signs of aspiration or developing pneumonia. However she is at risk to develop this over the next couple of days. If she develops fever, cough, or trouble breathing, please recheck with her doctor or come back to the ER. Prescriptions: No Action dextroamphetamine-amphetamine 5 mg capsule,extended release 24hr 5 PO DAILY risperidone 1 mg tablet 1 mg PO BID trazodone 100 mg tablet 100 mg PO QDAY adapalene 0.1 % gel 1 topical .Bedtime propranolol 10 mg tablet 10 mg PO BID fluoride (sodium) [SF 5000 Plus] 1.1 % cream 1 applic dental QHS Patient Comments: BRUSH TEETH WITH A PEA SIZED AMOUNT FOR 60 SECONDS ONCE DAILY AT BEDTIME THEN SPIT - DO NOT RINSE - NOTHING BY MOUTH FOR 30 MINUTES AFTER US quetiapine [Seroquel] 100 mg tablet 250 mg PO BID ondansetron 4 mg tablet,disintegrating 4 mg PO Q8H PRN (Reason: nausea and vomiting) Qty: 10 0RF polyethylene glycol 3350 17 gram/dose powder 17 g PO Q OTHER DAY Qty: 510 11RF montelukast 10 mg tablet 10 mg PO QPM Qty: 90 2RF Follow Up/Referrals: Apolinar Newman MD [Primary Care Provider, Family Practice] Stand Alone Forms: [facility]/School Release, [facility] Info Instructions
[2025-02-05 19:47] VITALS: BP 112/83; PULSE 82; RESP 14; O2SAT 96
== END 2025-02-05 20:23 | disposition home or self-care (01) ==
PROVIDERS: Emergency Provider Emergency Medicine; PCP Family Medicine
DX: T17.828A Food in other parts of respiratory tract causing other injury, initial encounter (principal)
CPT/HCPCS: 71046; 99282; 99283